=== PATIENT | male | born 1990 | race Caucasian/White ===

== ENCOUNTER 2020-06-14 22:08 | Emergency (ER) | payer OTHER ==
[~2020-06-14] VITALS: Ht 177.8 cm; Wt 104.0 kg
[2020-06-14] MEDS ORDERED: IBUPROFEN 600MG TABLET PO STA (23:20)
[2020-06-15 00:30] VITALS: BP 137/91
== END 2020-06-15 02:02 | disposition home or self-care (01) ==
LOC: ER 22:08
DX: F07.81 Postconcussional syndrome (principal); V43.52XA Car driver injured in collision with other type car in traffic accident, initial encounter; Y93.89 Activity, other specified; Y92.488 Other paved roadways as the place of occurrence of the external cause
CPT/HCPCS: 93005; 99284